=== PATIENT | female | born 1960 | race Caucasian/White ===

== ENCOUNTER 2017-02-18 09:01 | Emergency (ER) | payer OTHER ==
[2017-02-18 10:12] VITALS: BP 118/66
--- NOTE | 2017-02-18 10:13 | UC ---
Respiratory Complaint HPI - HPI Summary HPI Summary: uri began 02/12/17 continued chills chest tightness, left ear pain then last night had bloody drainage from ear--- - History of Current Complaint Chief Complaint: UCRespiratory Stated Complaint: COUGH Time Seen by Provider: 02/18/17 10:15 Hx Obtained From: Patient Hx Last Menstrual Period: n/a ?: No Onset/Duration: Gradual Onset, Still Present, Worse Since - last night Timing: Constant Severity Initially: Moderate Severity Currently: Moderate Character: Cough: Nonproductive Alleviating Factors: Nothing Associated Signs And Symptoms: Positive: Chills, Pleuritic Chest Pain, URI - Allergies/Home Medications Allergies/Adverse Reactions: Allergies Allergy/AdvReac Type Severity Reaction Status Date / Time Adhesive Tape Allergy Festering Verified 02/18/17 10:01 skin Penicillins Allergy Unknown Verified 02/18/17 10:01 Reaction Details Home Medications: Home Medications Abatacept* [Orencia*] 1 inj MONTHLY 02/18/17 [History Confirmed 02/18/17] Cholecalciferol [Vitamin D] 2,000 unit DAILY 02/18/17 [History Confirmed ] Cyanocobalamin [Vitamin B 12] 500 mg DAILY 02/18/17 [History Confirmed 02/18/17] Magnesium Oxide TAB* [MagOx 400 TAB*] 200 mg DAILY 02/18/17 [History Confirmed 02/18/17] Sertraline* [Zoloft*] 1 tab DAILY 02/18/17 [History Confirmed 02/18/17] Tumeric 1 tab DAILY 02/18/17 [History Confirmed 02/18/17] celeCOXIB CAP* [Celebrex CAP*] 1 tab DAILY 02/18/17 [History Confirmed 02/18/17] PMH/Surg Hx/FS Hx/Imm Hx Previously Healthy: No - RA GI/ History: Gastroesophageal Reflux Psychological History: Depression Other History Of: Negative For: HIV, Hepatitis B, Hepatitis C, Anticoagulant Therapy - Surgical History Surgical History: Yes Surgery Procedure, Year, and Place: hysterectomy. tonsils. appendectomy. 4 c- sections, gall bladder, bladder mesh - Family History Known Family History: Positive: None - Social History Occupation: Employed Full-time Lives: With Family Alcohol Use: Occasionally Substance Use Type: None Smoking Status (MU): Former Smoker When Did the Patient Quit Smoking/Using Tobacco: 11 MONTHS AGO Review of Systems Constitutional: Chills, Fatigue Skin: Negative Eyes: Negative ENT: Ear Ache - left, Nasal Discharge Respiratory: Cough Cardiovascular: Negative Gastrointestinal: Negative Genitourinary: Negative Motor: Negative Neurovascular: Negative Musculoskeletal: Negative Neurological: Negative Psychological: Negative Is Patient Immunocompromised?: Yes - On Orencia for RA All Other Systems Reviewed And Are Negative: Yes Physical Exam Triage Information Reviewed: Yes Appearance: Well-Appearing, No Pain Distress, Obese Vital Signs Reviewed: Yes Eye Exam: Normal Eyes: Positive: Conjunctiva Clear ENT Exam: Normal ENT: Positive: Normal ENT inspection, Hearing grossly normal, Pharynx normal, TMs normal - right, Uvula midline, Other - left tm appears ruptured. Negative: Nasal congestion, Nasal drainage, Tonsillar swelling, Tonsillar exudate, Trismus , Muffled voice, Hoarse voice, Dental tenderness, Sinus tenderness Dental Exam: Normal Neck exam: Normal Neck: Positive: Supple, Nontender, No Lymphadenopathy Respiratory Exam: Normal Respiratory: Positive: Chest non-tender, Lungs clear, Normal breath sounds, No respiratory distress, No accessory muscle use Cardiovascular Exam: Normal Cardiovascular: Positive: RRR, No Murmur, Pulses Normal, Brisk Capillary Refill Musculoskeletal Exam: Normal Musculoskeletal: Positive: Strength Intact, ROM Intact, No Edema Neurological Exam: Normal Neurological: Positive: Alert, Muscle Tone Normal Psychological Exam: Normal Skin Exam: Normal Re-Evaluation - Re-Evaluation First Eval Change: Worse - after duoneb c/o pain between shoulder blades , abd pain, feeling like she was going to faint and have emesis--BP 142/76 Hr 96 skin warm and dry was able to pivot on to stretcher Respiratory Course/Dx - Course Course Of Treatment: EMS to ED, saline lock o2 n/c ekg - Differential Dx/Diagnosis Provider Diagnoses: Acute SOB/Back Pain - Physician Notification/Consults Discussed Patient Care With: Daysi Stewart Time Discussed With Above Provider: 11:10 Instructed by Provider To: Transfer Discharge - Discharge Plan Condition: Fair Disposition: TRANS HIGHER LVL OF CARE FAC Referrals: Sunita Cadet MD [Primary Care Provider] -
[2017-02-18] MEDS ORDERED: Albuterol/Ipratropium NEB.SOL* Albuterol 2.5 MG/Ipratropium 0.5 MG 3 ML INH ONE (10:18)
== END 2017-02-18 11:20 | disposition short-term general hospital (02) ==
LOC: UCCORT 09:01
DX: R06.02 Shortness of breath (principal); M54.9 Dorsalgia, unspecified; R94.31 Abnormal electrocardiogram [ECG] [EKG]; Z88.0 Allergy status to penicillin; F32.9 Major depressive disorder, single episode, unspecified; Z87.891 Personal history of nicotine dependence
CPT/HCPCS: 99213; A9270-GY; G0463